=== PATIENT | female | born 1985 | race Asian ===

== ENCOUNTER 2019-12-06 02:49 | Inpatient (IN) ==
[2019-12-06] MEDS ORDERED: OXYTOCIN 30 UNITS/500 ML BAG IV PRN ×3 (03:40→20:50)
--- NOTE | 2019-12-06 03:42 | History & Physical Report ---
Date of Service December 06, 2019 Assessment & Plan Admission and Anticipated Discharge Date Admission Date: 34yo at 38.4 weeks GA. PROM 1. Fetus: Cat 1 2. Labor: PROM. Will start oxytocin 3. GBS negative 4. Vitals: WNL History of Present Illness Primary Care Provider: NO PCP 34yo at 38.4 weeks GA. Presents with PROM. Reporting mild contractions. No VB. Good FM. complicated by EIF with low risk panorama. OB Labs: Blood Type A Positive 06/02/19 Antibody Screen NEGATIVE 06/02/19 Hemoglobin 12.0 g/dL (12.0-16.0) 06/02/19 Hematocrit 33.5 % (37-47) L 06/02/19 Mean Corpuscular Volume 89.6 fL (80-100) 06/02/19 Platelet Count 334 K/uL (130-400) 06/02/19 Rubella IgG Antibody Immune (Immune) 06/02/19 Rapid Plasma Reagin Nonreactive (Nonreactive) 06/02/19 Hepatitis B Surface Antigen Neg (Neg) 06/02/19 HIV (1&2) Ab and P24 Ag, 4th Gener Neg (Neg) 06/02/19 Glucose 1 Hour 50 gm Load 88 mg/dl (70-130) 06/30/19 Maternal Serum Alpha Fetoprotein 37.3 ng/mL 06/30/19 OB Optional Labs: Chlamydia trachomatis RNA Cancelled 06/02/19 Neisseria gonorrhoeae RNA Cancelled 06/02/19 Alpha Fetoprotein Triple Screen SEE NOTE 06/30/19 Allergies Allergy/AdvReac Type Severity Reaction Status Date / Time No Known Drug Allergies Allergy Unknown Verified 12/06/19 03:11 Home Medications Home Medications Medication Instructions Recorded Confirmed Type PNV cmb#95-ferrous fumarate-FA 1 tab PO DAILY 12/06/19 12/06/19 History [] Patient History Social History Smoking Status: Never smoker Second Hand Exposure: No; Hx Alcohol Use: No Hx Substance Use: No Preferred Language: Andorran Communication Ability: Effective Shoe Shiner Required: No Beliefs That Will Affect Care: None marital status: marital status details: Dax Dominguez [phone] Current Living Situation: Spouse Current Living Situation Comment: lives with spouse, no pets current occupational status: employed current occupation: [employer] post [employer] Other Information That Helps Us Care for You: No Feels Safe at Home: Yes Safety Concerns: Feels Safe At This Time Physical Exam Gastrointestinal (Abdomen): Percussion/Palpation: abdomen soft; abdomen nontender, no guarding and abdomen not rigid Genitourinary: OB Exam Abdomen: + vertex Manual OB Exam: + cervical dilation 1 cm, + cervical effacement 20%, + station high and + amniotic fluid (Gross ROM) clear OB Exam Monitor Tracing: + external FHT monitor used, + external uterine monitor used, + category I and + normal FHT variability; no early decelerations present, no late decelerations present and no variable decelerations Results & Data ([facility]) Vital Signs (Past 12 Hours) Vital Signs Temp Pulse Resp BP 12/06/19 03:14 36.9 C 68 16 116/72 12/06/19 03:04 68 116/72 Coding Level of Care Code None
[2019-12-06 04:09] LABS: Hematocrit (blood only) 31.5 % (37-47); Hemoglobin 10.8 g/dL (12.0-16.0); Mean Corpuscular Volume 93.2 fL (80-100); Mean Platelet Volume 9.7 fL (7.4-10.4); Platelet Count 282 K/uL (130-400); RDW Coefficient of Variation 13.9 % (11.5-14.5); RDW Standard Deviation 46.4 fL (36.4-46.3); Red Blood Count 3.38 M/uL (4.2-5.4); White Blood Count 6.85 K/uL (4.8-10.8)
[2019-12-06 04:14] LABS: Mean Corpuscular Hgb Conc 34.3 g/dL (32-36)
[2019-12-06] MEDS: LACTATED RINGER'S 1,000 ML IV PRN ×3 (04:59→16:29)
--- NOTE | 2019-12-06 08:30 | Labor Progress Brief Note ---
Date of Service December 06, 2019 Subjective Reason For Note: Routine Evaluation Assessment & Plan Admission and Anticipated Discharge Date Admission Date: December 06, 2019 Physical Exam Genitourinary: OB Exam Abdomen: + vertex Manual OB Exam: + cervical dilation (1.5), + cervical effacement 70%, + station -2 and + amniotic fluid clear OB Exam Monitor Tracing: + external FHT monitor used, + external uterine monitor used, + category I, + category II (Occassional lates) and + normal FHT variability; no early decelerations present, no late decelerations present and no variable decelerations Results & Data ([facility]) Vital Signs (Past 12 Hours) Vital Signs Temp Pulse Resp BP 12/06/19 08:05 75 16 91/54 L 12/06/19 07:05 37.0 C 18 12/06/19 07:04 75 96/54 L 12/06/19 06:04 85 16 92/55 L 12/06/19 05:02 36.8 C 79 16 99/63 L 12/06/19 03:14 36.9 C 68 16 116/72 12/06/19 03:04 36.9 C 68 16 116/72 Supervising Physician Co-Signing Physician Notes Progressing, Continue pitocin Coding Level of Care Code None
[2019-12-06] MEDS ORDERED: BUPIVACAINE 0.25% 30 ML VIAL ONE (13:23)
[2019-12-06] MEDS ORDERED: ePHEDrine sulfate 50 MG/ML AMP ONE (13:23)
[2019-12-06] MEDS ORDERED: fentaNYL 2MCG/ML ROPIV 1.25MG/ML 100 ML BAG EPI ONE (13:24)
[2019-12-06] MEDS ORDERED: fentaNYL citrate 100 MCG/2 ML VIAL ONE (13:24)
[2019-12-06] MEDS ORDERED: NALOXONE HCL 0.4 MG/1 ML VIAL/CARP IV PRN (14:54)
[2019-12-06] MEDS ORDERED: fentaNYL 2MCG/ML ROPIV 1.25MG/ML 100 ML BAG EPI PRN (14:54)
[2019-12-06] MEDS ORDERED: ONDANSETRON INJ 2 MG/ML 2 ML VIAL IV PRN (14:54)
[2019-12-06] MEDS ORDERED: ePHEDrine sulfate 50 MG/ML AMP IV PRN (14:54)
[2019-12-06] MEDS ORDERED: PROMETHAZINE HCL 25 MG in SODIUM CHLORIDE 0.9% 50 ML IV PRN (14:54)
[2019-12-06] MEDS ORDERED: DiphenhydrAMINE HCL 50 MG/ML VIAL IV PRN (14:54)
[2019-12-06] MEDS ORDERED: NALOXONE HCL 1 MG in SODIUM CHLORIDE 0.9% 1000ML 1,000 ML IV PRN (14:54)
--- NOTE | 2019-12-06 14:54 | Anesthesiology Consultation ---
Date of Service December 06, 2019 Assessment & Plan ASA ASA2 Proposed Anesthesia Anesthesia Type: Labor Epidural Risk / Benefits Reviewed With: PT / POA / Parent / Guardian, Accepts Plan and Informed Consent Obtained History Height/Weight Height: 5 ft 4 in Weight: 62.596 kg Allergies Allergy/AdvReac Type Severity Reaction Status Date / Time No Known Drug Allergies Allergy Unknown Verified 12/06/19 03:11 Medications Home Medications Medication Instructions Recorded Confirmed Last Taken PNV cmb#95-ferrous fumarate-FA 1 tab PO DAILY 12/06/19 12/06/19 12/06/19 00:00 [] Active Medications Generic Name Dose Route Start Last Admin Trade Name Freq PRN Reason Stop Dose Admin Lactated Ringer's 1,000 mls @ 125 mls/hr 12/06/19 03:40 12/06/19 13:39 Lr IV 12/08/19 03:39 125 mls/hr .Q8H PRN Infusion L&D Protocol Protocol Oxytocin 30 units in 500 mls @ 8 mls/hr 12/06/19 03:41 12/06/19 07:05 Pitocin IV 12/08/19 03:40 0.48 units/hr .Q24H PRN 8 mls/hr Labor Induction/Augmentation Titration Protocol 0.48 UNITS/HR Past Medical History Medical History Endometrial polyp History of chicken pox No known health problems Exercise / Class Metabolic Activity II 4-5 Yardwork/Stairs/Walk up hill Past Family History Family History Grandfather (Paternal) Diabetes Grandfather (Maternal) Heart disease Aunt Breast cancer Past Surgical History Surgical History No history of previous surgery S/P dilatation and curettage S/P wisdom tooth extraction Past Anesthesia History No Hx of Anesthesia Complications and No Family Hx of Anesthesia Complications History of PONV No Hx of PONV and No Hx of Motion Sickness Social History Smoking Status: Never smoker Hx Alcohol Use: No Alcohol type: hard liquor alcohol intake frequency: holidays/special occasions only Hx Substance Use: No substance use type: does not use Review of Systems denies fever/cough/ colds/ chest pain/ SOB/ DIDI Constitutional: no fever and no chills Respiratory: no cough and no dyspnea denies DIDI Cardiovascular: no chest pain and no dyspnea on exertion Physical Exam Vital Signs Last Vital Signs Temp 36.8 C 12/06/19 12:32 Pulse 73 12/06/19 14:49 Resp 20 12/06/19 13:39 BP 92/50 L 12/06/19 14:39 Pulse Ox 99 12/06/19 14:49 ENMT Mouth: no TMJ abnormality and no dentition abnormality Thyromental Distance: > or= 3.5 Finger Breadths Mallampati Class: II Neck neck extension not limited Respiratory normal respiratory effort; no respiratory distress Auscultation: lungs clear to auscultation bilaterally Cardiovascular Rate/Rhythm: regular rate and regular rhythm Neurologic moves all extremities Psychiatric Orientation: alert and oriented x 3 Testing Laboratory Results 12/06/19 03:54
--- NOTE | 2019-12-06 20:39 | Delivery Summary ---
Vaginal Delivery Summary Date of Service December 06, 2019 Vaginal Delivery Summary Vaginal Delivery Summary: Pre-delivery diagnoses: 34yo @ 38 4/7, PROM Post-delivery diagnoses: same Procedure: spontaneous vaginal delivery, repair of 2nd degree perineal and right vaginal laceration, collection of cord blood for private banking Surgeon: Candida Thompson DO Complications: none Findings: Viable male . Apgars: 8/9. Weight pending, please see nursery records. Estimated blood loss: 300ml Description of delivery: The patient progressed to complete with epidural anesthesia. She then began to push. She spontaneously vaginally delivered a viable from the cephalic presentation. The head delivered in AMNA position. The anterior shoulder delivered, followed by the posterior shoulder, followed by the body. Tight nuchal, delivered through. The baby was placed on mother's abdomen and a spontaneous cry was heard. The cord was doubly clamped and cut and the cord blood for private banking was collected. Cord blood was obtained. The placenta was delivered spontaneously intact with a 3-vessel cord. The uterus and vagina were swept of clots and debris. IV pitocin was given. The uterus became firm. The cervix, vagina, and perineum were inspected and a 2nd degree perineal and a right vaginal lacerations were noted. These were repaired in standard fashion with 3-0 vicryl. Excellent hemostasis was observed. The mother and baby are recovering in stable and good condition in the room. Sponge, needle, and instrument counts were correct x 2. Candida Thompson DO [facility] Vaginal Delivery Charge Vaginal Delivery Codes: 98865 global code for the antepartum, delivery, and post-
[2019-12-06] MEDS ORDERED: HYDROCORTISONE ACETATE 25 MG SUPP PR PRN (20:50)
[2019-12-06] MEDS ORDERED: OXYCODONE/ACETAMINOPHEN 5mg/325mg TAB PO PRN (20:50)
[2019-12-06] MEDS ORDERED: BENZOCAINE 20% AER SPR 82.5 GM CAN EXT PRN (20:50)
[2019-12-06] MEDS ORDERED: ACETAMINOPHEN 325 MG TAB PO PRN (20:50)
[2019-12-06] MEDS ORDERED: bisacodyL 10 MG SUPP PR PRN (20:50)
[2019-12-06] MEDS ORDERED: SUPERCREAM 0.870% 15 GM JAR EXT PRN (20:50)
[2019-12-06] MEDS ORDERED: DIPHTHERIA/TETANUS/PERTUSSIS 0.5 ML SYR/VIAL IM ONE (21:00)
--- NOTE | 2019-12-06 22:02 | Anesthesia Procedure Note ---
Date of Service December 06, 2019 Anesthesia Post Epidural Note Vital Signs Vital Signs: Temp Pulse Resp BP Pulse Ox 37.6 C H 92 H 16 97/56 L 99 12/06/19 20:00 12/06/19 21:54 12/06/19 20:00 12/06/19 21:54 12/06/19 20:14 Pain Intensity Bilateral Back: Pain Intensity: 4 Notes Mental Status: alert / awake / arousable and participated in evaluation Nausea / Vomiting: adequately controlled Pain: adequately controlled Airway Patency, RR, SpO2: stable & adequate BP & HR: stable & adequate Hydration State: stable & adequate Neuraxial Anesthesia: was administered and sensory block is resolving Anesthetic Complications: no major complications apparent and Pt Satisfied with anesthetic care Epidural: Removed without complications and With tip intact Notes: Epidural site clean, dry and intact. No signs of edema, erythema or bruising at insertion site. Pt instructed to request anesthesia if she has residual lower extremity numbness or if she develops lower extremity pain or weakness, back pain or headache.
[2019-12-06] MEDS: IBUPROFEN 600 MG TAB PO PRN (22:29)
--- NOTE | 2019-12-07 06:19 | Obstetrical Progress Note ---
Date of Service <Emigdio Reese MD - Last Filed: 12/07/19 06:51> December 07, 2019 Assessment & Plan <Emigdio Reese MD - Last Filed: 12/07/19 06:51> (1) : - Feels well today. Eating well, voiding well, ambulating well. - Pain well controlled with analgesics. - Routine potpartum care - After discharge will have 6 week followup. Subjective <Emigdio Reese MD - Last Filed: 12/07/19 06:51> Dawn is a 34 y/o female ; PPD #1 following spontaneous vaginal delivery at 38+ weeks; doing well this morning; light abdominal cramping & 2/10 pain well managed on analgesics; voiding well; tolerating meals overnight and able to ambulate some; some persistent lochia with some improvement this morning. Review of Systems Constitutional: denies fever, chills, sweat, headache Respiratory: denies shortness of breath, difficulty breathing Cardiac: denies chest pain, palpitations, chest pressure Breast: denies breast pain : denies dysuria Physical Exam <Emigdio Reese MD - Last Filed: 12/07/19 06:51> General: Alert, oriented. No acute distress. Cardiac: Regular rate and rhythm, no murmurs/rubs/gallops. Respiratory: Clear to auscultation bilaterally a/p, no wheezes/rales/rhonchi. No increased work of breathing. Symmetrical chest rise. No respiratory distress. Abdomen: Soft, nontender, nondistended. Bowel sounds present. Uterus: Uterine fundus firm, palpable 1cm below umbilicus. Lower Extremities: No lower extremity edema or swelling. No deep calf pain. Angella's negative bilaterally. Results & Data <Emigdio Reese MD - Last Filed: 12/07/19 06:51> Vital Signs (Past 12 Hours) Vital Signs Temp Pulse Pulse Resp BP BP Pulse Ox 12/07/19 03:45 36.6 C 62 20 104/66 98 12/06/19 22:45 37.1 C 82 16 94/56 L 95 12/06/19 22:09 92 H 90/54 L 07/22/20 21:54 92 H 97/56 L 12/06/19 21:40 137 H 97/54 L 12/06/19 20:55 86 99/56 L 12/06/19 20:40 86 103/61 12/06/19 20:24 84 106/63 12/06/19 20:14 91 H 99 12/06/19 20:09 89 102/59 L 98 12/06/19 20:04 90 98 12/06/19 20:00 37.6 C H 16 12/06/19 19:59 93 H 95 12/06/19 19:54 93 H 109/57 L 98 12/06/19 19:49 91 H 98 12/06/19 19:44 91 H 98 12/06/19 19:39 86 107/61 98 12/06/19 19:34 94 H 98 12/06/19 19:29 103 H 98 12/06/19 19:28 86 79 L 12/06/19 19:24 77 102/59 L 100 12/06/19 19:20 71 94 12/06/19 19:19 75 98 12/06/19 19:15 37.7 C H 18 12/06/19 19:14 67 100 12/06/19 19:09 67 98/53 L 100 12/06/19 19:04 70 98 12/06/19 19:00 18 12/06/19 18:59 71 100 12/06/19 18:54 68 110/62 99 12/06/19 18:49 70 97 12/06/19 18:44 81 99 12/06/19 18:40 70 112/60 12/06/19 18:39 76 99 12/06/19 18:34 73 98 12/06/19 18:30 18 12/06/19 18:29 71 98 12/06/19 18:26 68 114/63 12/06/19 18:24 70 99 12/06/19 18:19 69 99 <Candida Thompson, DO - Last Filed: 12/07/19 09:18> Co-Signing Physician Notes Resident Physician Supervision Note: I was present with Dr. Restrepo during the history and exam. I discussed the case with the resident and agree with the findings and plan as documented in the note. Any exceptions or clarifications are listed here: PPD#1, doing well. Anticipate DC tomorrow. Documented By: Candida Thompson, DO Resident Activity Tracking <Emigdio Reese MD - Last Filed: 12/07/19 06:51> Resident Involvement: Resident Care Provided Care Provided: OB Delivery
[2019-12-07 06:42] LABS: Hematocrit (blood only) 27.7 % (37-47); Hemoglobin 9.5 g/dL (12.0-16.0)
[2019-12-07] MEDS: PRENATAL VITAMIN 1 TAB PO SCH (07:43)
[2019-12-07] MEDS: DOCUSATE SODIUM 100 MG CAP PO SCH ×2 (07:43→20:32)
[2019-12-07] MEDS ORDERED: NON-FORMULARY MEDICATION (Pnv Cmb#95-Ferrous Fumarate-Fa [Prenatal] 1 TAB) PO SCH (09:00)
[2019-12-07] MEDS: IBUPROFEN 600 MG TAB PO PRN ×2 (11:25→22:15)
[2019-12-07] MEDS ORDERED: bisacodyL 5 MG TABEC PO SCH (20:00)
--- NOTE | 2019-12-08 06:03 | Obstetrical Progress Note ---
Date of Service <Emigdio Reese MD - Last Filed: 12/08/19 06:38> December 08, 2019 Assessment & Plan <Emigdio Reese MD - Last Filed: 12/08/19 06:38> (1) : - Feels well today. Eating well, voiding well, ambulating well. - Pain well controlled with analgesics. - Routine potpartum care - After discharge will have 6 week followup. Subjective <Emigdio Reese MD - Last Filed: 12/08/19 06:38> Dawn is a 34 y/o female ; PPD #2 following spontaneous vaginal delivery at 38+ weeks; doing well this morning; _ abdominal cramping & _/10 pain well managed on analgesics; voiding well; tolerating meals overnight and able to ambulate some; some persistent lochia with some improvement this morning. Feels ready to go home today. Review of Systems Constitutional: denies fever, chills, sweat, headache Respiratory: denies shortness of breath, difficulty breathing Cardiac: denies chest pain, palpitations, chest pressure Breast: denies breast pain : denies dysuria Physical Exam <Emigdio Reese MD - Last Filed: 12/08/19 06:38> General: Alert, oriented. No acute distress. Cardiac: Regular rate and rhythm, no murmurs/rubs/gallops. Respiratory: Clear to auscultation bilaterally a/p, no wheezes/rales/rhonchi. No increased work of breathing. Symmetrical chest rise. No respiratory distress. Abdomen: Soft, nontender, nondistended. Bowel sounds present. Uterus: Uterine fundus firm, palpable 2cm below umbilicus. Lower Extremities: No lower extremity edema or swelling. No deep calf pain. Angella's negative bilaterally. Results & Data <Emigdio Reese MD - Last Filed: 12/08/19 06:38> Vital Signs (Past 12 Hours) Vital Signs Temp Pulse Resp BP Pulse Ox 12/07/19 23:15 36.7 C 72 16 103/65 99 12/07/19 20:00 36.6 C 82 16 99/62 L 97 <Yajaira Lucas MD, FACOG - Last Filed: 12/08/19 07:56> Co-Signing Physician Notes Resident Physician Supervision Note: I was present with Dr. Restrepo during the history and exam. I discussed the case with the resident and agree with the findings and plan as documented in the note. Any exceptions or clarifications are listed here: doing well, has cramping, well controlled on meds. ready to go home. breast, rh pos, ri. ff 2 down. nt, instructions reviewed, f/u 6wk pp. Documented By: Yajaira Lucas MD, FACOG Resident Activity Tracking <Emigdio Reese MD - Last Filed: 12/08/19 06:38> Resident Involvement: Resident Care Provided Care Provided: OB Delivery
[2019-12-08] MEDS: DOCUSATE SODIUM 100 MG CAP PO SCH (08:37)
[2019-12-08] MEDS: PRENATAL VITAMIN 1 TAB PO SCH (08:37)
[2019-12-08] MEDS: IBUPROFEN 600 MG TAB PO PRN (08:37)
== END 2019-12-08 13:46 | disposition home or self-care (01) | DRG 807 ==
LOC: OPB 02:49 → 4S1 02:54 → 4S2 22:25